=== PATIENT | male | born 1995 | race Caucasian/White ===

== ENCOUNTER 2016-06-08 08:03 | Emergency (ER) | payer SELFPAY ==
[~2016-06-08] VITALS: Ht 182.8 cm; Wt 82.6 kg
[~2016-06-08 08:03] MED LIST: ALBUTEROL0.09 MG/A2 INH; BENADRYL ALLERG25 M5 PO; BENTYL10 MG PO; HYDROCODONE BIT1 T11 PO; LIDEX 0.05% CRE15 GM T; MOTRIN800 MG PO; PREDNICOT20 MG PO; TYLENOL500 MG PO; ZITHROMAX Z PA250 MG PO; ZOFRAN ODT4 MG SL
== END 2016-06-08 09:38 | disposition home or self-care (01) ==
LOC: ED 08:03
DX: S61.212A Laceration without foreign body of right middle finger without damage to nail, initial encounter (principal); F17.200 Nicotine dependence, unspecified, uncomplicated; Z88.0 Allergy status to penicillin; W26.0XXA Contact with knife, initial encounter; Y93.9 Activity, unspecified; Y92.9 Unspecified place or not applicable; Y99.9 Unspecified external cause status

== ENCOUNTER 2017-05-26 12:55 | Emergency (ER) | payer SELFPAY ==
[~2017-05-26] VITALS: Ht 182.8 cm; Wt 87.1 kg
[2017-05-26] MEDS ORDERED: ZOFRAN ODT4 MG SL (13:36)
[2017-05-26] MEDS ORDERED: ZITHROMAX250 MG PO (13:36)
== END 2017-05-26 13:46 | disposition home or self-care (01) ==
LOC: ED 12:55
DX: J02.9 Acute pharyngitis, unspecified (principal); R11.0 Nausea; H66.93 Otitis media, unspecified, bilateral; F17.200 Nicotine dependence, unspecified, uncomplicated; Z98.890 Other specified postprocedural states; Z88.0 Allergy status to penicillin

== ENCOUNTER 2021-10-30 11:13 | Emergency (ER) | payer BC ==
[~2021-10-30] VITALS: Wt 90.7 kg
[~2021-10-30 11:13] MED LIST changes: +ZITHROMAX250 MG PO
== END 2021-10-30 13:47 | disposition home or self-care (01) ==
LOC: ED 11:13
DX: S63.92XA Sprain of unspecified part of left wrist and hand, initial encounter (principal); Z88.0 Allergy status to penicillin; W22.8XXA Striking against or struck by other objects, initial encounter; Y93.89 Activity, other specified; Y92.89 Other specified places as the place of occurrence of the external cause; Y99.8 Other external cause status

== ENCOUNTER 2023-03-08 08:23 | Emergency (ER) | payer SELFPAY ==
[~2023-03-08] VITALS: Wt 88.5 kg
[2023-03-09] MEDS ORDERED: ZITHROMAX250 MG PO (10:59)
== END 2023-03-08 10:03 | disposition home or self-care (01) ==
LOC: ED 08:23
DX: J02.9 Acute pharyngitis, unspecified (principal); R11.10 Vomiting, unspecified; R13.10 Dysphagia, unspecified; Z88.0 Allergy status to penicillin; Z98.890 Other specified postprocedural states; Z20.822 Contact with and (suspected) exposure to COVID-19